=== PATIENT | female | born 1985 | race Caucasian/White ===

== ENCOUNTER 2021-03-10 09:55 | Inpatient (IN) ==
[2021-03-10] MEDS ORDERED: Tetan/Diph/Pertus SYR(Tdap) 0.5 ML SYR(BOOSTRIX) use SYR contains LATEX IM ONE (10:19)
[2021-03-10 12:27] LABS: ABS Basophils 0.1 10^3/ul (0-0.2); ABS Eosinophils 0.1 10^3/ul (0-0.6); ABS Lymphocytes 2.6 10^3/ul (1.0-4.8); ABS Monocytes 0.5 10^3/ul (0-0.8); ABS Neutrophils 4.3 10^3/ul (1.5-7.7); Eosinophil % 1.3 %; Hematocrit 39 % (35-47); Hemoglobin 13.2 g/dL (12.0-16.0); Lymphocyte % 34.2 %; Mean Corpuscular HGB Conc 34 g/dL (31-36); Mean Corpuscular Hemoglobin 31 pg (27-31); Mean Corpuscular Volume 92 fL (80-97); Mean Platelet Volume 9.5 fL (7.4-10.4); Nucleated Red Blood Cells % 0.1; Platelet Count 240 10^3/uL (150-450); Red Blood Count 4.21 10^6 /uL (3.70-4.87); Red Cell Distribution Width 13 % (10-15); White Blood Count 7.6 10^3/uL (3.5-10.8)
[2021-03-10 12:39] LABS: ALT 30 U/L (7-52); AST 19 U/L (13-39); Albumin 4.1 g/dL (3.2-5.2); Alkaline Phosphatase 48 U/L (35-149); Anion Gap 9 mmol/L (2-11); Blood Urea Nitrogen 8 mg/dL (6-24); CO2 Carbon Dioxide 23 mmol/L (22-32); Calcium 9.2 mg/dL (8.6-10.3); Chloride 107 mmol/L (101-111); EGFR African American 114.6 (>60); EGFR Non-African American 94.7 (>60); Globulin 2.1 g/dL (2-4); Glucose 85 mg/dL (70-100); Potassium 3.7 mmol/L (3.5-5.0); Sodium 139 mmol/L (135-145); Total Protein 6.2 g/dL (6.4-8.9)
[2021-03-10 12:45] LABS: HCG Pregnancy < 0.60 mIU/mL
[2021-03-10 13:04] LABS: Acetaminophen < 15 mcg/mL; Alcohol, S < 10 mg/dL (<10); Salicylate < 2.50 mg/dL (<30)
[2021-03-10 13:19] LABS: TSH Ultra Thyroid Stim Horm 0.66 mcIU/mL (0.34-5.60)
[2021-03-10 13:58] LABS: HIV 4th Generation Nonreactive (Nonreactive)
[2021-03-10 14:41] LABS: Hepatitis B Surface Antigen Nonreactive (Nonreactive)
[2021-03-10 14:58] LABS: Hepatitis B Surface Ab Not Immune (Immune)
[2021-03-10 14:59] LABS: Hepatitis C Antibody Negative (Negative)
[2021-03-10] MEDS ORDERED: HEPATITIS B VACCINE 20 MCG/ML IM ONE ×2 (15:10→23:00)
[2021-03-10] MEDS ORDERED: Hepatitis B Immune Globulin > 312 UNITS/ML 5 ML VIAL IM ONE ×2 (15:10→23:00)
[2021-03-10] MEDS ORDERED: LORazepam 2 mg VIAL 1 ml ONE (15:35)
[2021-03-10 16:03] LABS: Urine Benzodiazepine Screen None Detected (None Detect); Urine Cannabinoids Screen Presumptive Positive (None Detect); Urine Opiates Screen Presumptive Positive (None Detect)
[2021-03-10] MEDS ORDERED: Al Hydrox/Mg Hydrox/Simet LIQ 30 ML UDC PO PRN (17:35)
[2021-03-10 22:35] VITALS: BP 146/91
[2021-03-11] MEDS: Vitamin THERAPEUTIC TAB PO SCH (09:42)
[2021-03-11] MEDS: Nicotine PATCH 21 MG/24 HR PATCH TRANSDERM SCH (09:42)
[2021-03-11] MEDS: HYDROcodone/ACETAMIN 5/325 mg TAB PO PRN (13:27)
[2021-03-11] MEDS: LEVONORGESTREL ETHINYL ESTRADIOL PO SCH (21:44)
[2021-03-12] MEDS: Nicotine PATCH 21 MG/24 HR PATCH TRANSDERM SCH (09:57)
[2021-03-12] MEDS: Vitamin THERAPEUTIC TAB PO SCH (09:57)
[2021-03-12] MEDS: LEVONORGESTREL ETHINYL ESTRADIOL PO SCH ×2 (10:24→16:31)
[2021-03-12] MEDS: HYDROcodone/ACETAMIN 5/325 mg TAB PO PRN (11:17)
[2021-03-13] MEDS: Vitamin THERAPEUTIC TAB PO SCH (07:38)
[2021-03-13] MEDS: HYDROcodone/ACETAMIN 5/325 mg TAB PO PRN ×2 (07:38→15:14)
[2021-03-13] MEDS: Nicotine PATCH 21 MG/24 HR PATCH TRANSDERM SCH (07:38)
[2021-03-13] MEDS: Nicotine GUM 2MG FRUIT FLAVOR PO PRN ×3 (07:40→17:31)
[2021-03-13] MEDS: LEVONORGESTREL ETHINYL ESTRADIOL PO SCH (16:36)
[2021-03-14] MEDS: HYDROcodone/ACETAMIN 5/325 mg TAB PO PRN ×2 (08:07→15:21)
[2021-03-14] MEDS: Nicotine GUM 2MG FRUIT FLAVOR PO PRN ×3 (08:08→17:00)
[2021-03-14] MEDS: Vitamin THERAPEUTIC TAB PO SCH (08:08)
[2021-03-14] MEDS: Nicotine PATCH 21 MG/24 HR PATCH TRANSDERM SCH (09:14)
[2021-03-14] MEDS: LEVONORGESTREL ETHINYL ESTRADIOL PO SCH (16:59)
[2021-03-15] MEDS: HYDROcodone/ACETAMIN 5/325 mg TAB PO PRN (08:13)
[2021-03-15] MEDS: Nicotine PATCH 21 MG/24 HR PATCH TRANSDERM SCH (08:30)
[2021-03-15] MEDS: Vitamin THERAPEUTIC TAB PO SCH (08:30)
[2021-03-15] MEDS: Nicotine GUM 2MG FRUIT FLAVOR PO PRN ×2 (08:31→12:37)
== END 2021-03-15 14:02 | disposition home or self-care (01) | DRG 751 ==
LOC: ED 09:55 → BSU 16:56
PROVIDERS: ADMIT Psychiatry & Neurology Psychiatry; ATTEND Psychiatry & Neurology Psychiatry